=== PATIENT | female | born 1975 | race African-American/Black ===

== ENCOUNTER 2017-10-21 11:16 | Emergency (ER) | payer OTHER ==
[~2017-10-21] VITALS: Ht 170.2 cm; Wt 122.5 kg
--- NOTE | ~2017-10-21 | EKG ---
[place] [address] [employer] [employer] [place] [address] ELECTROCARDIOGRAM REPORT Name: SERVANDO GALLARDO [id number] Admission: 10/21/17 Attend Phys: Discharge: 10/21/17 Date of : 79 Report #: [id number] THIS REPORT FOR: //name// [facility] ED Test Date: 2017-10-21 Test Time: 14:31:58 Pat Name: SERVANDO GALLARDO Department: Room: Gender: F Administrative Services Manager: Heather TAVERAS : 1975 Requested By: Sirisha Adamson Order Number: [id number] MD: Serg Peacock Measurements Intervals [place] Rate: 78 P: 65 MD: 137 QRS: 18 QRSD: 92 T: -1 QT: 369 QTc: 421 Interpretive Statements Sinus rhythm No significant abnormality No previous ECG available for comparison Electronically Signed On 10-22-2017 8:39:40 LATIN PROFESSOR by Serg Peacock [email or web address] <ELECTRONICALLY SIGNED> By: Serg Peacock MD, [facility] 10/22/17 0839 1431 1431 Serg Peacock MD, FACC /EPI
[2017-10-21] MEDS ORDERED: LABETALOL HCL100 MG PO (11:26)
[2017-10-21] MEDS ORDERED: PROCARDIA XL30 MG PO (11:26)
[2017-10-21 11:37] LABS: URINE BILIRUBIN NEGATIVE (Negative); URINE BLOOD 3+ (Negative); URINE CLARITY CLEAR; URINE COLOR YELLOW; URINE GLUCOSE-RANDOM* NEGATIVE (Negative); URINE KETONES NEGATIVE (Negative); URINE LEUKOCYTES NEGATIVE (Negative); URINE NITRITE NEGATIVE (Negative); URINE PROTEIN (DIPSTICK) TRACE (Negative); URINE SPECIFIC GRAVITY >= 1.030 (1.005-1.035); URINE UROBILINOGEN 0.2 E.U./dl (0.2-1.0)
[2017-10-21 11:43] LABS: CASTS None Seen /LPF (None Seen); CRYSTALS None Seen /LPF (None Seen); SQUAMOUS >10 Many /LPF (0-3)
[2017-10-21 11:44] LABS: BACTERIA 1-9 Few /HPF (None Seen); URINE RBC 3-10 Few /HPF (0-2); URINE WBC 0-5 Rare /HPF (0-5)
[2017-10-21 13:11] LABS: ABSOLUTE NEUTROPHILS 5.1 thou/uL (1.4-8.2); BASOPHILS 0.7 % (0.0-2.0); HEMATOCRIT 35.3 % (37.0-47.0); HEMOGLOBIN 11.3 gm/dL (12.0-15.0); LYMPHOCYTES 28.2 % (24.0-44.0); MCH 24.9 pg (26.0-34.0); MCHC 32.1 g/dL (28.0-37.0); MCV 77.7 fL (80.0-100.0); MONOCYTES 7.9 % (1.0-8.0); PLATELET COUNT 362 thou/uL (150-400); POLYS 61.2 % (36.0-66.0); RBC 4.54 mil/uL (4.20-5.00); WBC 8.4 thou/uL (4.0-11.0)
[2017-10-21 13:19] LABS: ANION GAP 9 mmol/L (7-16); BUN 15 mg/dL (7-18); CALCIUM 9.3 mg/dL (8.5-10.1); CHLORIDE 104 mmol/L (98-107); CO2 27 mmol/L (21-32); CREATININE 0.9 mg/dL (0.6-1.0); GLUCOSE 46 mg/dL (74-106); POTASSIUM 3.4 mmol/L (3.5-5.1); SODIUM 140 mmol/L (136-145)
[2017-10-21 13:29] LABS: ALBUMIN 3.6 g/dL (3.4-5.0); LIPASE 123 U/L (73-393); SGOT 23 U/L (15-37); SGPT 36 U/L (30-65); TOTAL BILIRUBIN 0.3 mg/dL (<0.1-1.0); TOTAL PROTEIN 7.4 g/dL (6.4-8.2); TROPONIN-I < 0.04 ng/mL (<0.06)
[2017-10-21] MEDS ORDERED: NAPROSYN500 MG PO (15:01)
== END 2017-10-21 15:31 | disposition home or self-care (01) ==
LOC: ER 11:16
PROVIDERS: Nurse Practitioner Family
DX: N64.89 Other specified disorders of breast (principal); R07.89 Other chest pain; E11.9 Type 2 diabetes mellitus without complications; I10 Essential (primary) hypertension; Z90.49 Acquired absence of other specified parts of digestive tract

== ENCOUNTER 2018-04-06 03:49 | Emergency (ER) | payer OTHER ==
[~2018-04-06] VITALS: Ht 170.2 cm; Wt 122.5 kg
--- NOTE | ~2018-04-06 | EKG ---
[place] [address] [facility] [place] [address] ELECTROCARDIOGRAM REPORT Name: SERVANDO GALLARDO Room #: [facility] [id number] Admission: 04/06/18 Attend Phys: Discharge: 04/06/18 Date of : [birth year] Report #: [id number] THIS REPORT FOR: //name// [facility] ED Test Date: 2018-04-06 Test Time: 04:11:16 Pat Name: SERVANDO GALLARDO Department: Room: Gender: F Hall Supervisor: keira : 1975 Requested By: Yanique Winston Order Number: [id number] MD: Serg Peacock Measurements Intervals [place] Rate: 71 P: 46 [place]: 140 QRS: 18 QRSD: 96 T: 14 QT: 393 QTc: 428 Interpretive Statements Sinus rhythm Normal tracing Compared to ECG 10/21/2017 14:31:58 No significant changes Electronically Signed On 04-08-2018 8:22:24 CDT by Serg Peacock [email or web address] <ELECTRONICALLY SIGNED> By: Serg Peacock MD, [facility] 04/08/18 0822 0411 0411 Serg Peacock MD, FACC /EPI
[~2018-04-06 03:49] MED LIST: LABETALOL HCL100 MG PO; NAPROSYN500 MG PO; PROCARDIA XL30 MG PO
[2018-04-06] MEDS ORDERED: NORCO 5-325 TA1 EACH PO (04:03)
[2018-04-06] MEDS ORDERED: IBUPROFEN 400400 M2 PO (04:03)
[2018-04-06 04:14] LABS: URINE BILIRUBIN NEGATIVE (Negative); URINE BLOOD NEGATIVE (Negative); URINE CLARITY SL CLOUDY; URINE COLOR YELLOW; URINE GLUCOSE-RANDOM* 3+ (Negative); URINE KETONES NEGATIVE (Negative); URINE LEUKOCYTES NEGATIVE (Negative); URINE NITRITE NEGATIVE (Negative); URINE PROTEIN (DIPSTICK) NEGATIVE (Negative); URINE SPECIFIC GRAVITY 1.015 (1.005-1.035); URINE UROBILINOGEN 0.2 E.U./dl (0.2-1.0)
[2018-04-06] MEDS ORDERED: LABETALOL HCL100 MG PO (04:16)
[2018-04-06] MEDS ORDERED: PROCARDIA XL30 MG PO (04:16)
[2018-04-06 05:00] VITALS: BP 161/77
== END 2018-04-06 04:50 | disposition home or self-care (01) ==
LOC: ER 03:49
PROVIDERS: Emergency Medicine
DX: M54.6 Pain in thoracic spine (principal); M94.0 Chondrocostal junction syndrome [Tietze]; R81 Glycosuria; E11.9 Type 2 diabetes mellitus without complications; I10 Essential (primary) hypertension; Z90.49 Acquired absence of other specified parts of digestive tract

== ENCOUNTER 2018-06-27 23:51 | Emergency (ER) | payer OTHER ==
[~2018-06-27] VITALS: Ht 170.2 cm; Wt 127.0 kg
--- NOTE | ~2018-06-27 | EKG ---
[place] [address] [facility] [place] [address] ELECTROCARDIOGRAM REPORT Name: SERVANDO GALLARDO [facility] [id number] Admission: 06/27/18 Attend Phys: Discharge: 06/28/18 Date of : [birth year] Report #: [id number] THIS REPORT FOR: //name// [facility] ED Test Date: 2018-06-28 Test Time: 01:10:44 Pat Name: SERVANDO GALLARDO Department: Room: Gender: F [place]ip [place]umper[place] [facility] [place] 1975 Requested By: Mohsen Sepulveda Order Number: [id number] MD: Serg Peacock Measurements Intervals [place] Rate: 110 P: 55 [place]: 140 QRS: 46 QRSD: 88 T: -7 QT: 334 QTc: 452 Interpretive Statements Sinus tachycardia Borderline T abnormalities, diffuse leads Compared to ECG 04/06/2018 04:11:16 T-wave abnormality now present Heart rate has increased Electronically Signed On 06-28-2018 8:12:38 TRAIN OPERATOR by Serg Peacock [email or web address] <ELECTRONICALLY SIGNED> By: Serg Peacock MD, [facility] 06/28/1812 0110 011 Serg Peacock MD, [facility] /EPI
[~2018-06-27 23:51] MED LIST changes: +IBUPROFEN 400400 M2 PO; +NORCO 5-325 TA1 EACH PO
[2018-06-28] MEDS ORDERED: NOVOLOG100 UNIT/1 SUBQ (00:06)
[2018-06-28] MEDS ORDERED: LEVEMIR SUBQ (00:06)
[2018-06-28 02:06] LABS: ABSOLUTE NEUTROPHILS 8.5 thou/uL (1.4-8.2); BASOPHILS 0.1 % (0.0-2.0); HEMOGLOBIN 13.6 gm/dL (12.0-15.0); LYMPHOCYTES 4.4 % (24.0-44.0); MCH 27.2 pg (26.0-34.0); MCHC 33.2 g/dL (28.0-37.0); MCV 81.8 fL (80.0-100.0); PLATELET COUNT 299 thou/uL (150-400); POLYS 93.5 % (36.0-66.0); RBC 5.01 mil/uL (4.20-5.00); RDW 13.6 % (10.5-14.5); WBC 9.1 thou/uL (4.0-11.0)
[2018-06-28 02:10] LABS: ANION GAP 13 mmol/L (7-16); BUN 13 mg/dL (7-18); CALCIUM 10.1 mg/dL (8.5-10.1); CHLORIDE 98 mmol/L (98-107); CO2 25 mmol/L (21-32); GLUCOSE 318 mg/dL (74-106); POTASSIUM 3.4 mmol/L (3.5-5.1); SODIUM 136 mmol/L (136-145)
[2018-06-28 02:18] LABS: LIPASE 84 U/L (73-393); SGOT 13 U/L (15-37); SGPT 21 U/L (30-65); TOTAL BILIRUBIN 1.5 mg/dL (<0.1-1.0); TOTAL PROTEIN 8.3 g/dL (6.4-8.2); TROPONIN-I <0.06 ng/mL (<0.06)
[2018-06-28 02:40] LABS: URINE BILIRUBIN NEGATIVE (Negative); URINE BLOOD 2+ (Negative); URINE CLARITY CLEAR; URINE COLOR YELLOW; URINE GLUCOSE-RANDOM* 3+ (Negative); URINE KETONES 1+ (Negative); URINE PROTEIN (DIPSTICK) TRACE (Negative)
[2018-06-28 02:42] LABS: URINE LEUKOCYTES-REFLEX TRACE (Negative); URINE NITRITE-REFLEX POSITIVE (Negative)
[2018-06-28 02:56] LABS: COARSE GRANULAR CASTS 0-3 Few /LPF (None Seen); HYALINE CASTS 0-3 Few /LPF (None Seen); MUCUS 0-3 Light strn/LPF (None Seen); SQUAMOUS 4-10 Moderate /LPF (0-3); URINE RBC 3-10 Few /HPF (0-2)
[2018-06-28 02:57] LABS: BACTERIA-REFLEX >30 Many /HPF (None Seen); CRYSTALS None Seen /LPF (None Seen)
[2018-06-28] MEDS ORDERED: BACTRIM DS TAB1 EACH PO (03:13)
[2018-06-28 03:48] VITALS: BP 114/55
== END 2018-06-28 04:01 | disposition home or self-care (01) ==
LOC: ER 23:51
PROVIDERS: Emergency Medicine
DX: N39.0 Urinary tract infection, site not specified (principal); E11.9 Type 2 diabetes mellitus without complications; R19.7 Diarrhea, unspecified; R50.9 Fever, unspecified; I10 Essential (primary) hypertension; Z90.49 Acquired absence of other specified parts of digestive tract; Z79.4 Long term (current) use of insulin

== ENCOUNTER 2018-06-29 21:01 | Inpatient (IN) | payer OTHER ==
[~2018-06-29] VITALS: Ht 170.2 cm; Wt 127.0 kg
[~2018-06-29 21:01] MED LIST changes: +BACTRIM DS TAB1 EACH PO; +LEVEMIR SUBQ; +NOVOLOG100 UNIT/1 SUBQ
[2018-06-29 21:05] VITALS: BP 123/72
[2018-06-29 22:44] LABS: HEMATOCRIT 40.1 % (37.0-47.0); HEMOGLOBIN 13.6 gm/dL (12.0-15.0); MCH 27.7 pg (26.0-34.0); MCHC 33.8 g/dL (28.0-37.0); PLATELET COUNT 332 thou/uL (150-400); RDW 14.1 % (10.5-14.5); WBC 19.1 thou/uL (4.0-11.0)
[2018-06-29 23:04] LABS: CALCIUM 9.3 mg/dL (8.5-10.1); POTASSIUM 3.2 mmol/L (3.5-5.1); TOTAL BILIRUBIN 0.4 mg/dL (<0.1-1.0); TOTAL PROTEIN 8.5 g/dL (6.4-8.2)
[2018-06-29 23:09] LABS: CREATININE 2.8 mg/dL (0.6-1.0)
[2018-06-29 23:12] LABS: ABSOLUTE NEUTROPHILS 17.2 thou/uL (1.4-8.2); METAMYELOCYTES 1 %; PLATELET ESTIMATE NORMAL
[2018-06-30 02:17] VITALS: BP 114/65
[2018-06-30 02:24] VITALS: BP 114/65
[2018-06-30 02:50] VITALS: BP 113/68
[2018-06-30 06:10] LABS: HEMATOCRIT 38.4 % (37.0-47.0); HEMOGLOBIN 12.8 gm/dL (12.0-15.0); MCH 27.2 pg (26.0-34.0); MCHC 33.2 g/dL (28.0-37.0); MCV 81.9 fL (80.0-100.0); RBC 4.69 mil/uL (4.20-5.00); RDW 13.9 % (10.5-14.5); WBC 17.3 thou/uL (4.0-11.0)
[2018-06-30 06:23] LABS: CALCIUM 9.2 mg/dL (8.5-10.1)
[2018-06-30 06:24] LABS: CREATININE 1.7 mg/dL (0.6-1.0)
[2018-06-30 09:17] VITALS: BP 130/58
[2018-06-30 15:17] VITALS: BP 129/86
[2018-06-30 19:01] VITALS: BP 153/87
[2018-07-01 03:56] VITALS: BP 152/85
[2018-07-01 08:06] VITALS: BP 159/96
[2018-07-01 09:07] LABS: HEMATOCRIT 38.6 % (37.0-47.0); HEMOGLOBIN 12.6 gm/dL (12.0-15.0); MCHC 32.8 g/dL (28.0-37.0); MCV 82.5 fL (80.0-100.0); PLATELET COUNT 349 thou/uL (150-400); RBC 4.68 mil/uL (4.20-5.00); RDW 14.1 % (10.5-14.5); WBC 21.1 thou/uL (4.0-11.0)
[2018-07-01 09:47] LABS: METAMYELOCYTES 1 %; MYELOCYTES 1 %
[2018-07-01 09:50] LABS: ABSOLUTE NEUTROPHILS 17.9 thou/uL (1.4-8.2)
[2018-07-01 12:05] LABS: URINE BLOOD 1+ (Negative); URINE CLARITY CLEAR; URINE COLOR YELLOW; URINE GLUCOSE-RANDOM* 2+ (Negative); URINE KETONES 3+ (Negative); URINE LEUKOCYTES-REFLEX NEGATIVE (Negative); URINE NITRITE-REFLEX NEGATIVE (Negative); URINE PROTEIN (DIPSTICK) 1+ (Negative); URINE SPECIFIC GRAVITY 1.025 (1.005-1.035); URINE UROBILINOGEN 0.2 E.U./dl (0.2-1.0)
[2018-07-01 12:07] LABS: ICTOTEST (BILI CONFIRMATORY) Negative (Negative); URINE BILIRUBIN NEGATIVE (Negative)
[2018-07-01 12:09] LABS: SQUAMOUS 0-3 Few /LPF (0-3)
[2018-07-01 12:10] LABS: BACTERIA-REFLEX None Seen /HPF (None Seen); CASTS None Seen /LPF (None Seen); CRYSTALS None Seen /LPF (None Seen); URINE RBC 0-2 Rare /HPF (0-2); URINE WBC-REFLEX None Seen /HPF (0-5)
[2018-07-01 15:30] VITALS: BP 169/78
[2018-07-01 16:15] VITALS: BP 155/80
[2018-07-01 19:11] VITALS: BP 148/78
[2018-07-02 02:42] VITALS: BP 150/83
[2018-07-02 05:34] LABS: HEMATOCRIT 38.2 % (37.0-47.0); HEMOGLOBIN 12.3 gm/dL (12.0-15.0); MCH 26.3 pg (26.0-34.0); MCHC 32.2 g/dL (28.0-37.0); MCV 81.7 fL (80.0-100.0); PLATELET COUNT 350 thou/uL (150-400); RBC 4.68 mil/uL (4.20-5.00); RDW 13.8 % (10.5-14.5); WBC 13.6 thou/uL (4.0-11.0)
[2018-07-02 05:41] LABS: CALCIUM 9.3 mg/dL (8.5-10.1); CREATININE 0.8 mg/dL (0.6-1.0)
[2018-07-02 05:46] LABS: POTASSIUM 2.9 mmol/L (3.5-5.1)
[2018-07-02 07:55] VITALS: BP 153/90
[2018-07-02 09:11] LABS: ABSOLUTE NEUTROPHILS 10.1 thou/uL (1.4-8.2); PLATELET ESTIMATE NORMAL
[2018-07-02 13:52] VITALS: BP 153/90
== END 2018-07-02 15:42 | disposition home or self-care (01) | DRG 392 ==
LOC: ER 21:01 → EROBS 06-30 01:13 → 4W 06-30 01:13 → ENTRNSPT 07-02 14:59 → EDTRNSPTSTS 07-02 15:22 → 4W 07-02 15:42
PROVIDERS: Emergency Medicine; Hospitalist; Nurse Practitioner Family
DX: A08.4 Viral intestinal infection, unspecified (principal); N17.9 Acute kidney failure, unspecified; N39.0 Urinary tract infection, site not specified; E11.9 Type 2 diabetes mellitus without complications; I10 Essential (primary) hypertension; E86.0 Dehydration; Z98.84 Bariatric surgery status; Z90.49 Acquired absence of other specified parts of digestive tract; Z79.4 Long term (current) use of insulin; Z79.899 Other long term (current) drug therapy
CPT/HCPCS: 10040